=== PATIENT | female | born 1960 | race Caucasian/White ===

== ENCOUNTER 2016-08-07 05:34 | Day surgery (SDC) | payer OTHER ==
[2016-08-07] VITALS (13 sets, daily range): BP systolic 128–175; BP diastolic 71–94; PULSE 66–74; RESP 11–19; Ht 154.9 cm; Wt 85.0 kg
[~2016-08-07] VITALS: Ht 154.9 cm; Wt 85.0 kg
[2016-08-07] MEDS ORDERED: DEXAMETHASONE 4 MG/ML 1 ML INJ ONE (06:47)
[2016-08-07] MEDS ORDERED: BUPIVACAINE 0.5% (SDV) 30 ML INJ ONE (06:47)
[2016-08-07] MEDS ORDERED: POLYMYXIN/BACITRACIN 1L IRRIG ONE (06:48)
[2016-08-07] MEDS ORDERED: LIDOCAINE 0.5% (MDV) 50 ML INJ ONE (06:48)
[2016-08-07] MEDS ORDERED: HYD25 PO (06:51)
[2016-08-07] MEDS ORDERED: MIDAZOLAM 1 MG/ML 2 ML INJ ONE (07:48)
[2016-08-07] MEDS ORDERED: CEFAZOLIN 1 GM INJ ONE (07:48)
[2016-08-07] MEDS ORDERED: LIDOCAINE 2% (SDV) 5 ML INJ ONE (07:48)
[2016-08-07] MEDS ORDERED: PROPOFOL 20 ML ONE (07:48)
[2016-08-07] MEDS ORDERED: FENTAnyl 50 MCG/ML VIAL ONE (07:48)
--- NOTE | 2016-08-07 08:00 | HPN ---
Date/Time of Note Date/Time of Note DATE: 08/07/16 TIME: 08:00 Interval H&P Admission Note Pt. seen H&P reviewed: No system changes KAYLA MATOS DPM August 07, 2016 08:00
[2016-08-07] MEDS ORDERED: ONDANSETRON 4 MG INJ ONE (08:17)
[2016-08-07] MEDS ORDERED: METOCLOPRAMIDE 10 MG INJ ONE (08:17)
[2016-08-07] MEDS ORDERED: KETOROLAC 30 MG INJ ONE (08:42)
[2016-08-07] MEDS ORDERED: DIPHENHYDRAMINE 50 MG INJ IV PRN (09:00)
[2016-08-07] MEDS ORDERED: PROCHLORPERAZINE 10 MG INJ IV PRN (09:00)
[2016-08-07] MEDS ORDERED: LABETALOL HCL 20MG INJ IV PRN (09:00)
[2016-08-07] MEDS ORDERED: HYDROmorphONE (0.2 MG/ML) 10ML SYG IV PRN (09:00)
[2016-08-07] MEDS ORDERED: MEPERIDINE 25 MG INJ IV PRN (09:00)
[2016-08-07] MEDS ORDERED: OXYCODONE/ACETAMINOPHEN (5/325) TAB PO PRN ×2 (09:00)
[2016-08-07] MEDS ORDERED: ONDANSETRON 4 MG INJ IV PRN (09:00)
[2016-08-07] MEDS ORDERED: FENTAnyl 50 MCG/ML VIAL IV PRN (09:00)
[2016-08-07] MEDS ORDERED: hydrALAzine 20 MG INJ IV PRN (09:00)
[2016-08-07] MEDS ORDERED: HYDROCODONE/APAP (5/325) TAB PO PRN (11:00)
--- NOTE | 2016-08-07 14:28 | OPR ---
DATE OF OPERATION: 08/07/2016 SURGEON: Leah Fallon DPM ANESTHESIOLOGIST: Gaye Porter MD ANESTHESIA: General. PREOPERATIVE DIAGNOSIS: Painful bunion with hallux valgus, left foot. POSTOPERATIVE DIAGNOSIS: Painful bunion with hallux valgus, left foot. OPERATION PERFORMED: Bunionectomy with osteotomy, left first metatarsal. DESCRIPTION OF PROCEDURE: The patient was brought into the operating room, placed on the table in a secure supine position. Cardiac monitoring, IV sedation, and an ankle pneumatic tourniquet were ut ilized for this case. Preoperatively, a total of 20 mL of 0.5% Marcaine plain mixed with 2% lidocai ne plain were infiltrated into the left foot in the form of a Cobian block. Upon achieving anesthesia , the left foot and leg were prepped and draped in the usual sterile manner and the ankle pneumatic tourniquet was then inflated to 250 mmHg. Procedure #1 was then performed, bunionectomy with osteot rubina, left first metatarsal. A 4 cm incision was placed along the medial aspect of the first metatar sophalangeal joint. The incision was deepened. Superficial bleeders were cauterized and bovied as necessary. The incision was then deepened down to the capsule. The capsule was reflected dorsally and plantarly exposing the hypertrophic medial eminence. The hypertrophic medial eminence was trans ected with a power sagittal saw. A 0.45 Sky wire was inserted from medial to lateral 1.5 cm p roximal to the metatarsophalangeal joint, acting as an access guide. A Chevron osteotomy was then p erformed with a long dorsal arm to obtain maximum reduction of the metatarsus primus varus deformity . Two screws were used one 3.0 mm x 19 mm cannulated screw. A second 3.0 mm x 17 mm cannulated Stry ker screw. The capital fragment was translocated and good fixation was noted. The remaining bone w as transected with a power sagittal saw. The area was rasped smooth. No sharp edges were left behi nd. The area was copiously irrigated with sterile saline mixed with bacitracin solution. The capsu le was closed with 2-0 Vicryl simple interrupted sutures. The subcutaneous tissue was closed with 4 -0 Vicryl simple interrupted sutures and the skin edges were reapproximated with a running 3-0 Prole ne subcuticular stitch. The dressing consisted of Xeroform gauze, 4 x 4 gauze, tincture of benzoin, 1/4-inch Steri-Strips, 4-inch Kerlix roll and 2-inch Coban into a semi-compressive dressing. Immed iate hyperemia was noted to all digits of the left foot upon deflating the interrupted ankle tourniq uet. No intraoperative complications were encountered. Patient tolerated the above procedure well. She left the OR with vital signs stable and satisfactory. The patient will follow up 1 week posto p. Dictated By: LEAH CLEMONS Conf#: [id number] DID#: [id number]
== END 2016-08-07 11:38 | disposition home or self-care (01) ==
LOC: SDS 05:34
PROVIDERS: ATTEND Podiatrist Primary Podiatric Medicine
DX: M20.12 Hallux valgus (acquired), left foot (principal); M21.612 Bunion of left foot; I10 Essential (primary) hypertension; E78.5 Hyperlipidemia, unspecified; E66.01 Morbid (severe) obesity due to excess calories; Z68.35 Body mass index [BMI] 35.0-35.9, adult
CPT/HCPCS: 28296; C1713; J0690; J1885; J2250; J2405; J2765; J3010; L3260; Z7512; Z7610; J1100